=== PATIENT | male | born 1950 | race Caucasian/White ===

== ENCOUNTER → 2016-06-23 | Outpatient (CLI) | payer BC ==
--- NOTE | 2016-06-23 09:49 | DX ---
Right Ankle, Three Views Indication: Lateral ankle pain for 2 years. No recent trauma. Technique: AP, mortise, and lateral views. Findings: The bones are anatomically aligned. Bone mineralization is normal. Ankle mortise is intact. Small degenerative osteophytes emanate off the inferior tip of the medial malleolus. No osteophytes or erosions along the lateral joint line. The talar dome is normal. Impression: 1. 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 2. No explanation for lateral pain.
--- NOTE | 2016-06-23 10:01 | DX ---
Right Foot, Three Views Indication: Lateral pain for 2 years. No recent trauma. Findings: The normally mineralized bones are anatomically aligned. Amorphous periosteal reaction is present along the lateral plantar aspect of the anterior process of the calcaneus near the peroneal t ubercle. No lytic or blastic associated bone lesion or discernible fracture plane. The foot is otherw ise normal with minimal age-appropriate osteoarthritis of the interphalangeal joints. Impression: Periosteal reaction along the lateral body of the calcaneus may be a manifestation of per rodriguez tendinopathy or stress fracture. MRI of the ankle without contrast would optimally characterize . Comment: I have reviewed the case with Dr. Cheo Goodwin, who agrees with the Findings and the I mpression.
== END ==
LOC: BMCIMAGING 09:17
PROVIDERS: ATTEND Podiatrist Foot & Ankle Surgery
DX: M25.571 Pain in right ankle and joints of right foot (principal); M19.071 Primary osteoarthritis, right ankle and foot

== ENCOUNTER → 2016-09-15 | Outpatient (CLI) | payer BC | LOC: BMCIMAGING 07:51 | PROVIDERS: ATTEND Internal Medicine | DX: I10 Essential (primary) hypertension (principal) ==

== ENCOUNTER → 2016-11-09 | Outpatient (CLI) | payer BC | LOC: FCPNEURO 21:00 | PROVIDERS: ATTEND Psychiatry & Neurology Sleep Medicine | DX: G47.31 Primary central sleep apnea (principal); G47.33 Obstructive sleep apnea (adult) (pediatric); G47.61 Periodic limb movement disorder ==

== ENCOUNTER → 2017-02-24 | Outpatient (CLI) | payer BC ==
[~2017-02-24] MED LIST: IOPAMIDOL (ISOVUE 370) 100 ML BTL IV ONE
== END ==
LOC: FIMAGING 09:18
PROVIDERS: ATTEND Physician Assistant Medical
DX: I77.810 Thoracic aortic ectasia (principal); I10 Essential (primary) hypertension; I51.7 Cardiomegaly
CPT/HCPCS: Q9967

== ENCOUNTER 2017-05-26 07:26 | Day surgery (SDC) | payer BC ==
[2017-05-26] MEDS ORDERED: NS 1,000 ML IV ONE (07:30)
[2017-05-26] MEDS ORDERED: DIAZEPAM 5 MG TAB PO ONE (07:30)
[2017-05-26] MEDS ORDERED: FAMOTIDINE 20 MG TAB PO ONE (07:30)
[2017-05-26] MEDS ORDERED: ASPIRIN EC 325 MG TAB PO ONE (07:30)
[2017-05-26] MEDS ORDERED: diphenhydrAMINE 25 MG CAP PO ONE (07:30)
--- NOTE | 2017-05-26 07:50 | CPEKG ---
Heart Rate: 46 RR Interval: 1304 P-R Interval: 228 QRSD Interval: 80 QT Interval: 476 QTC Interval: 417 P [place]: 59 QRS [place]: 3 T Wave [place]: 35 EKG Severity - OTHERWISE NORMAL ECG - EKG Impression: SINUS BRADYCARDIA EKG Impression: FIRST DEGREE AV BLOCK Electronically Signed By: Jose Bledsoe 26-May-2017 20:45:56
[2017-05-26 08:12] LABS: % IMMATURE GRANULYOCYTES 0.2 % (0.0-1.1); ABSOLUTE IMMATURE GRANULOCYTES 0.01 10^3/uL (0.00-0.10); ADD DIFF? NO; ADD MORPH? NO; ADD SCAN? NO; ATYPICAL LYMPHOCYTE FLAG 10 (0-99); FRAGMENT RBC FLAG 0 (0-99); HEMATOCRIT 41.9 % (40.0-51.0); HEMOGLOBIN 14.2 g/dL (13.7-17.5); LEFT SHIFT FLG 0 (0-99); LIPEMIA HEMOLYSIS FLAG 90 (0-99); MEAN CELL HEMOGLOBIN CONCENTR. 33.9 g/dL (32.4-36.7); MEAN CELL VOLUME 100.2 fL (81.5-99.8); PLATELET CLUMPS FLAG 0 (0-99); PLATELET COUNT 213 10^3/uL (150-400); RED BLOOD CELL COUNT 4.18 10^6/uL (4.40-6.38)
[2017-05-26 08:39] LABS: ANION GAP 13 mEq/L (8-16); CALCIUM 9.7 mg/dL (8.5-10.4); CARBON DIOXIDE 24 mEq/l (22-31); CHLORIDE 105 mEq/L (97-110); CHOLESTEROL 163 mg/dL (140-220); CHOLESTEROL/HDL RATIO 3.62 RATIO (1.00-4.97); CREATININE 1.1 mg/dL (0.7-1.3); GLOMERULAR FILTRATION RATE > 60; GLUCOSE 88 mg/dL (70-100); HIGH DENSITY LIPOPROTEIN 45 mg/dL (40-65); LDL/HDL RATIO 2.07 RATIO (1.00-3.64); LOW DENSITY LIPOPROTEIN 93 mg/dL (80-100); MAGNESIUM 1.8 mg/dL (1.6-2.3); NON-HIGH DENSITY LIPOPROTEIN 118 mg/dL (90-129); POTASSIUM 4.7 mEq/L (3.5-5.2); SODIUM 142 mEq/L (134-144); TRIGLYCERIDE 126 mg/dL (40-150); VERY LOW DENSITY LIPOPROTEINS 25 mg/dL (8-25)
[2017-05-26] MEDS ORDERED: MIDAZOLAM 2 MG/2 ML VIAL ONE ×2 (09:46→11:02)
[2017-05-26] MEDS ORDERED: IOPAMIDOL (ISOVUE-370) 150 ML BTL IV ONE (09:46)
[2017-05-26] MEDS ORDERED: fentaNYL 100 MCG/2 ML INJ ONE (09:46)
[2017-05-26] MEDS ORDERED: LIDOCAINE 1% 300 MG/30 ML SDV ONE (09:46)
--- NOTE | 2017-05-26 10:06 | PDPROPOC ---
Sedation Plan of Care Sedation Plan of Care: vital signs stable, mental status noted, patient educated of risks, benefits, alternatives, patient can tolerate sedation ASA Classification: ASA 2 Planned drugs: fentanyl, midazolam Mallampati Score: Class 2 Mallampati Reference Image: Patient passed 3-3-2 rule?: Yes
--- NOTE | 2017-05-26 10:07 | PDHPUP ---
History & Physical Update H&P update statement: This history and physical update is based on an assessment of the patient which was completed after admission or registration (within 24 hours), but prior to the surgery/procedure. H&P update: H&P reviewed & patient examined, no change in patient's condition since H&P completed
[2017-05-26 11:26] LABS: INR 1.07 (0.83-1.16); PROTIME(PATIENT) 14.1 SEC (12.0-15.0)
[2017-05-26] MEDS ORDERED: ONDANSETRON 4 MG/2 ML VIAL IVP PRN (11:35)
[2017-05-26] MEDS ORDERED: ATROPINE SULFATE 1 MG/10 ML SYR IVP PRN (11:35)
[2017-05-26] MEDS ORDERED: NITROGLYCERIN 0.4 MG BTL SL PRN (11:35)
--- NOTE | 2017-05-26 14:14 | CPIP ---
[f rep st] INVASIVE CARDIAC PROCEDURE DATE OF PROCEDURE: 05/26/2017 NAME OF PROCEDURE: 1. Coronary angiography. 2. Left ventriculography. INDICATION: 1. Dyspnea on exertion, concerning for class 2-3 anginal equivalent. 2. Intermediate nuclear stress test with anterior ischemia. ACCESS: The patient was prepped and draped in sterile fashion. 1% lidocaine was used to anesthetize the right inguinal region. A 6-Cymraes introducer sheath was placed selectively in the right common femoral artery via modified Seldinger technique. CORONARY ANGIOGRAPHY: A 6-Cymraes JL4 was advanced to the left main coronary artery and images obtain ed. The left main coronary artery bifurcated into an LAD and circumflex coronary arteries. The left main coronary artery appeared normal. The left anterior descending coronary artery had mild luminal irregularities through the mid vessel, there was no stenosis greater than 10%. The circumflex coron wally artery is a large vessel and was codominant. Circumflex coronary artery had a single discrete 20 % to 30% stenosis in the mid vessel. A 6-Cymraes JR4 was advanced to the right coronary artery and im ages obtained. The right coronary artery is small. The right coronary artery had a single, discrete , 40% to 50% stenosis in the midvessel. LEFT VENTRICULOGRAPHY: A 6-Cymraes pigtail catheter was advanced in the left ventricle and images obt ained. Left ventricle is normal size and normal systolic function. Estimated ejection fraction was 65%. COMPLICATIONS: None. CONCLUSIONS: 1. [id number] coronary artery disease without flow limitation. 2. Normal left ventricular size and systolic function. 3. Plan is for medical management. /[id number]/MODL
== END 2017-05-26 16:40 | disposition home or self-care (01) ==
LOC: FCATH 07:26
PROVIDERS: ATTEND Internal Medicine Cardiovascular Disease
DX: I25.10 Atherosclerotic heart disease of native coronary artery without angina pectoris (principal); R94.39 Abnormal result of other cardiovascular function study; R06.00 Dyspnea, unspecified; I71.2 Thoracic aortic aneurysm, without rupture; E78.5 Hyperlipidemia, unspecified; I11.9 Hypertensive heart disease without heart failure
CPT/HCPCS: J1644; J2250; J3010; Q9967

== ENCOUNTER → 2018-09-27 | Outpatient (CLI) | payer OTHER, MEDICARE | LOC: BHFA 11:30 | PROVIDERS: ATTEND Internal Medicine Cardiovascular Disease | DX: I25.10 Atherosclerotic heart disease of native coronary artery without angina pectoris (principal); I71.9 Aortic aneurysm of unspecified site, without rupture ==

== ENCOUNTER → 2018-10-17 | Outpatient (CLI) | payer OTHER, MEDICARE | LOC: FIMAGING 09:21 | PROVIDERS: ATTEND Internal Medicine Cardiovascular Disease | DX: I77.810 Thoracic aortic ectasia (principal) | CPT/HCPCS: 71275; Q9967; 82565-PO ==